=== PATIENT | male | born 1985 | race Two or more races ===

== ENCOUNTER 2022-02-23 15:53 | Emergency (ER) | payer BC ==
[~2022-02-23] VITALS: Ht 165.1 cm; Wt 74.8 kg
[~2022-02-23 15:53] MED LIST: NAPR-1164 PO
--- NOTE | 2022-02-23 19:55 | NUR ---
Patient discharged to home in stable condition. Written and verbal after care instructions given. Patient verbalizes understanding of instruction. Pt ambulatory with a steady gait
[2022-02-23 19:56] VITALS: BP 125/88
[2022-02-24] MEDS ORDERED: CYCL10TA9 PO (12:45)
[2022-02-24] MEDS ORDERED: TRIA15OI2 TP (12:45)
[2022-02-24] MEDS ORDERED: IBUP-1955 PO (12:45)
== END 2022-02-23 19:56 | disposition home or self-care (01) ==
LOC: ER 16:00
DX: R51.9 Headache, unspecified (principal); R11.0 Nausea
CPT/HCPCS: 70450-TC; 71045-TC; 72125-TC

== ENCOUNTER 2022-02-24 12:07 | Emergency (ER) | payer BC, MEDICAID ==
[~2022-02-24] VITALS: Ht 160 cm; Wt 72.6 kg
--- NOTE | 2022-02-24 12:30 | NUR ---
BIBS W/ C/O VOMITING, NECK PAIN, HEADACHE, AND LEFT SIDED PAIN RATED 8/10. PT A/O X4, AMBULATORY. TO ER BED 3.
--- NOTE | 2022-02-24 12:32 | NUR ---
DR. DURHAM AT BEDSIDE FOR EVAL
[2022-02-24] MEDS ORDERED: IBUP-1955 PO (12:45)
[2022-02-24] MEDS ORDERED: CYCL10TA9 PO (12:45)
[2022-02-24] MEDS ORDERED: TRIA15OI2 TP (12:45)
[2022-02-24] MEDS ORDERED: IBUPROFEN 600 MG TABLET ONE (12:48)
[2022-02-24 12:55] VITALS: BP 134/79
--- NOTE | 2022-02-24 12:55 | NUR ---
Patient discharged to home in stable condition. Written and verbal after care instructions given. Patient verbalizes understanding of instruction.
[2022-02-24] MEDS ORDERED: IBUPROFEN 600 MG TABLET PO ONE (13:00)
== END 2022-02-24 12:56 | disposition home or self-care (01) ==
LOC: ER 12:09 → MERGE 12:09 → ER 12:56
DX: S16.1XXA Strain of muscle, fascia and tendon at neck level, initial encounter (principal); S09.90XA Unspecified injury of head, initial encounter; R11.2 Nausea with vomiting, unspecified; V49.49XA Driver injured in collision with other motor vehicles in traffic accident, initial encounter; Y93.89 Activity, other specified; Y92.413 State road as the place of occurrence of the external cause; Y99.8 Other external cause status